=== PATIENT | male | born 1950 | race Caucasian/White ===

== ENCOUNTER 2017-01-10 11:32 | Day surgery (SDC) | payer MEDICARE ==
[~2017-01-10 11:32] MED LIST: Acetaminophen TAB* 325 MG PO PRN; Buffered Lidocaine 0.9% SYRIN* 5 ML/SYR SYRINGE INTRADERM ONE
[2017-01-10] MEDS ORDERED: Midazolam* 1 MG/ML 2 ML VIAL (2 MG) ONE (13:05)
[2017-01-10] MEDS ORDERED: Phenylephrine 2.5% OPTH.SOL* 2 ML BTL ONE (13:12)
[2017-01-10] MEDS ORDERED: Tropicamide 1% OPTH.SOL* BTL ONE (13:12)
[2017-01-10] MEDS ORDERED: Cyclopentolate 1% OPTH.SOL* 2 ML BTL ONE (13:12)
[2017-01-10] MEDS ORDERED: Neomycin/Polymy/Dex OPHTH.OIN* 3.5 GM ONE (13:12)
[2017-01-10] MEDS ORDERED: Tetracaine 0.5% OPTH.SOL 4 ML* 1 DROP BTL ONE (13:12)
[2017-01-10] MEDS ORDERED: Buffered Lidocaine 0.9% SYRIN* 5 ML/SYR SYRINGE ONE (13:12)
[2017-01-10] MEDS ORDERED: Ketorolac 0.5% OPHTH (NF) 0.5 % 5 ML BTL ONE (13:12)
[2017-01-10] MEDS ORDERED: Lidocaine 1% MPF* 2 ML VIAL ONE (13:12)
[2017-01-10 13:34] VITALS: BP 145/74
--- NOTE | 2017-01-10 15:25 | OP ---
DATE OF OPERATION/DATE OF DICTATION: 01/10/2017 - [facility] DATE OF : 1950. SURGEON: Dr. Jagdish Altamirano. MANAGER ECONOMIC: None. ANESTHESIOLOGIST: Manuel Lucero MD ANESTHESIA: Topical with intravenous sedation. PRE-OP DIAGNOSIS: Cataract, left eye. POST-OP DIAGNOSIS: Cataract, left eye. OPERATIVE PROCEDURE: Phacoemulsification and cataract extraction with posterior chamber intraocular lens implant, left eye. COMPLICATIONS: None. BLOOD LOSS: None. DESCRIPTION OF PROCEDURE: The patient was brought to the operating room and received a small amount of intravenous sedation. A drop of Tetracaine was placed in his left eye. He was prepped and draped in the usual sterile fashion for ophthalmic surgery and attention was directed to the left eye where a speculum was placed. A paracentesis was created at the 5 o'clock position and 0.1 cc of 1 percent preservative-free Lidocaine was injected into the anterior chamber followed by DisCoVisc. The eye was digitally stabilized while a 2.75 mm keratome was used to create a triplanar clear corneal incision at the 3 o'clock position. A continuous curvilinear capsulorrhexis was created with a cystotome and Utrata forceps. BSS on a cannula was used to hydrodissect the lens from the capsule. Phacoemulsification was performed in a siizfj-[id number]-[id number] technique to create four fragments which were removed. Residual cortical material was removed with irrigation and aspiration. DisCoVisc was used to inflate the capsular bag and an AUOOTO 19.0 diopter lens was folded and inserted into the capsular bag. DisCoVisc was removed using irrigation and aspiration. BSS on a cannula was used to hydrate the corneal stroma and seal the wound. At the end of the case the pupil was round and the lens was centered. The eye was of normal pressure and the wound was water tight. The speculum was removed and topical Maxitrol ointment was placed on the surface of the eye. The eye was closed, patched and shielded and the patient was sent to the recovery room in stable condition with post operative instructions and follow-up appointment given. [id number]/CPS #: [id number] [facility]
== END 2017-01-10 13:40 | disposition home or self-care (01) ==
LOC: OREAST 11:32
PROVIDERS: ATTEND Ophthalmology
DX: H25.012 Cortical age-related cataract, left eye (principal); I10 Essential (primary) hypertension; J44.9 Chronic obstructive pulmonary disease, unspecified; Z85.46 Personal history of malignant neoplasm of prostate; Z87.891 Personal history of nicotine dependence; Z79.82 Long term (current) use of aspirin
CPT/HCPCS: A9270-GY; J2250

== ENCOUNTER 2017-01-24 07:57 | Day surgery (SDC) | payer MEDICARE ==
[2017-01-24] MEDS ORDERED: fentaNYL* 50 MCG/ML 2 ML VIAL (100 MCG VIAL) ONE (08:12)
[2017-01-24] MEDS ORDERED: Midazolam* 1 MG/ML 5 ML VIAL (5 MG) ONE (08:12)
[2017-01-24 10:33] VITALS: BP 146/73
--- NOTE | 2017-01-24 12:40 | OP ---
DATE OF OPERATION: 01/24/2017 [facility] DATE OF : 1950. SURGEON: Dr. Jagdish Altamirano. SOCCER PLAYER: None. ANESTHESIA: Topical with intravenous sedation. PRE-OP DIAGNOSIS: Cataract, right eye. POST-OP DIAGNOSIS: Cataract, right eye. OPERATIVE PROCEDURE: Phacoemulsification and cataract extraction with posterior chamber intraocular lens implant, right eye. COMPLICATIONS: None. BLOOD LOSS: None. DESCRIPTION OF PROCEDURE: The patient was brought to the operating room and received a small amount of intravenous sedation. A drop of Tetracaine was placed in his right eye. He was prepped and draped in the usual sterile fashion for ophthalmic surgery and attention was directed to the right eye where a speculum was placed. A paracentesis was created at the 11 o'clock position and 0.1 cc of 1 percent preservative-free Lidocaine was injected into the anterior chamber followed by DisCoVisc. The eye was digitally stabilized while a 2.75 mm keratome was used to create a triplanar clear corneal incision at the 9 o'clock position. A continuous curvilinear capsulorrhexis was created with a cystotome and Utrata forceps. BSS on a cannula was used to hydrodissect the lens from the capsule. Phacoemulsification was performed in a divide-and- conquer technique to create four fragments which were removed. Residual cortical material was removed with irrigation and aspiration. DisCoVisc was used to inflate the capsular bag and an AUOOTO 20.0 diopter lens was folded and inserted into the capsular bag. DisCoVisc was removed using irrigation and aspiration. BSS on a cannula was used to hydrate the corneal stroma and seal the wound. At the end of the case the pupil was round and the lens was centered. The eye was of normal pressure and the wound was water tight. The speculum was removed and topical Maxitrol ointment was placed on the surface of the eye. The eye was closed, patched and shielded and the patient was sent to the recovery room in stable condition with post operative instructions and follow-up appointment given. [id number]/CPS #: [id number] DAVID
[2017-01-24] MEDS ORDERED: Ketorolac 0.5% OPHTH (NF) 0.5 % 5 ML BTL ONE (15:12)
[2017-01-24] MEDS ORDERED: Tropicamide 1% OPTH.SOL* BTL ONE (15:12)
[2017-01-24] MEDS ORDERED: Cyclopentolate 1% OPTH.SOL* 2 ML BTL ONE (15:12)
[2017-01-24] MEDS ORDERED: Tetracaine 0.5% OPTH.SOL 4 ML* 1 DROP BTL ONE (15:12)
[2017-01-24] MEDS ORDERED: Neomycin/Polymy/Dex OPHTH.OIN* 3.5 GM ONE (15:12)
[2017-01-24] MEDS ORDERED: Lidocaine 1% MPF* 2 ML VIAL ONE (15:12)
[2017-01-24] MEDS ORDERED: Phenylephrine 2.5% OPTH.SOL* 2 ML BTL ONE (15:12)
== END 2017-01-24 10:24 | disposition home or self-care (01) ==
LOC: OREAST 07:57
PROVIDERS: ATTEND Ophthalmology
DX: H25.11 Age-related nuclear cataract, right eye (principal); J44.9 Chronic obstructive pulmonary disease, unspecified; Z87.891 Personal history of nicotine dependence; I10 Essential (primary) hypertension; Z79.899 Other long term (current) drug therapy
CPT/HCPCS: A9270-GY; J2250; J3010

== ENCOUNTER 2018-08-21 10:20 | Inpatient (IN) | payer MEDICARE ==
--- NOTE | 2018-08-21 10:38 | ED ---
Substance Abuse/Use - HPI Summary HPI Summary: Patient is a 68 y/o M presenting to ED via EMS after an intentional overdose attempt. Patient reports that he deals with chronic pinched nerve hip pain. This morning, the patient had "had enough" and took theophylline, 100 mg x6 and losartan, 50 mg x5, at 0300. The patient reports that he later regretted this attempt and felt that he should have not attempted to overdose. Patient is reported to have called his family who decided to call EMS. EMS note that the patient had complaints of light-headedness and dizziness onsetting when they arrived in ED. PMHx of HTN, varicose veins, prostate CA. PSHx for hemorrhoids removal, right inguinal hernia repair, prostate CA surgery, bilateral catatracts surgery. FMHx of cardiac disease. Patient reports weekly alcohol usage, is a former smoker of over 25 years, denies substance usage. On triage, pain is rated 8/10, nothing is noted to aggravate/alleviate Sx. Home medications and allergies. - History Of Current Complaint Chief Complaint: EDOverdose Stated Complaint: OVERDOSE PER EMS Time Seen by Provider: 08/21/18 10:26 Hx Obtained From: Patient, EMS Onset/Duration of Drug/ETOH Abuse: Hours Ingestion History: Type/Name Of Drug - theophylline, 100 mg x6 and losartan, 50 mg x5 Overdose Characteristics: Oral Timing Of Abuse: Intermittent Severity Currently: Severe - pain 8/10 Character: Depressed Aggravating Factor(s): Other - chronic pain issues Alleviating Factor(s): Nothing Associated Signs And Symptoms: Other: - dizziness/light-headed - Allergies/Home Medications Allergies/Adverse Reactions: Allergies Allergy/AdvReac Type Severity Reaction Status Date / Time No Known Allergies Allergy Verified 06/08/18 08:40 Home Medications: Home Medications Fluconazole 150 MG TAB* [Diflucan 150 MG TAB*] 150 mg PO WEEKLY 08/21/18 [ History Confirmed 08/21/18] Losartan TAB* [Cozaar TAB*] 50 mg PO DAILY 08/21/18 [History Confirmed 08/21/18] Saline NASAL SPRAY 0.65%* [Sodium Chloride 0.65% Nasal [place]*] 1 - 2 spray BOTH NARES BID 08/21/18 [History Confirmed 08/21/18] Theophylline Anhydrous [Riky-24] 100 mg PO DAILY 08/21/18 [History Confirmed ] traMADol TAB* [Ultram*] 50 - 100 mg PO Q8H PRN 08/21/18 [History Confirmed 08/21] PMH/Surg Hx/FS Hx/Imm Hx Endocrine/Hematology History: Denies: Hx Bone Marrow Disease, Hx Diabetes, Hx Sickle Cell Disease, Hx Anemia Cardiovascular History: Reports: Hx Hypertension, Other Cardiovascular Problems/ Disorders - HX OF VARICOSE VEINS BILATERALLY, SURG X 3 Denies: Hx Pacemaker/ICD Respiratory History: Reports: Other Respiratory Problems/Disorders - WAS A HEAVY SMOKER FOR 37 YRS GI History: Reports: Other GI Disorders - HX HEMORRHOIDS, RIGHT INGUINAL HERNIA REPAIR History: Reports: Other Problems/Disorders - PROSTATE CA 2000 Denies: Hx Dialysis, Hx Renal Disease Musculoskeletal History: Reports: Other Musculoskeletal History - CHRONIC LEFT SHOULDER PAIN, GETS CORTISONE INJECTIONS, PRN Denies: Hx Arthritis Sensory History: Reports: Hx Cataracts - BILATERAL, Hx Contacts or Glasses - GLASSES Denies: Hx Hearing Aid Opthamlomology History: Reports: Hx Cataracts - BILATERAL, Hx Contacts or Glasses - GLASSES Psychiatric History: Denies: Hx Panic Disorder - Cancer History Cancer Type, Location and Year: Prostate cancer - surgery only 2000 Hx Chemotherapy: No - Surgical History Surgery Procedure, Year, and Place: HEMORRHOIDS - [facility];. RIGHT INGUINAL HERNIA - [facility];. BILATERAL VERICOSE VEINS - X3 - [facility];. PROSTATE CA - 2000 - [facility];. BILAT CATARACTS 2016; Hx Anesthesia Reactions: No - Family History Known Family History: Positive: Cardiac Disease - Social History Alcohol Use: Weekly Alcohol Amount: 1 BEER/WEEK Substance Use Type: Reports: None Smoking Status (MU): Former Smoker Type: Cigarettes Amount Used/How Often: 2 1/2 PPD OFF AN ON FOR 37 YRS Length of Time of Smoking/Using Tobacco: 37 YRS Have You Smoked in the Last Year: No Review of Systems Negative: Fever - ON VITALS, TEMP IS 98.6 F Neurological: Other - POSITIVE - DIZZINESS/LIGHT-HEADED Psychological: Other - POSITIVE - INTENTIONAL OVERDOSE ATTEMPT All Other Systems Reviewed And Are Negative: Yes Physical Exam - Summary Physical Exam Summary: Appearance: Well-appearing, Well-nourished, lying in bed comfortably Skin: Warm, dry, no obvious rash Eyes: sclera anicteric, no conjunctival pallor ENT: mucous membranes moist, pharynx appears normal Neck: Supple, nontender Respiratory: Clear to auscultation, no signs of respiratory distress Cardiovascular: Mild tachycardia. Normal S1, S2. No murmurs. Normal distal pulses in tibial and radial bilaterally. Abdomen: Soft, nontender, normal active bowel sounds present Musculoskeletal: Normal, Strength/ROM Intact Neurological: A&Ox3, awake and alert, mentation is normal, speech is fluent and appropriate Psychiatric: affect is normal, does not appear anxious or depressed Triage Information Reviewed: Yes Vital Signs On Initial Exam: Initial Vitals Temp Pulse Resp BP Pulse Ox 98.6 F 112 26 126/93 94 08/21/18 10:36 08/21/18 10:36 08/21/18 10:36 08/21/18 10:36 08/21/18 10:36 Vital Signs Reviewed: Yes Diagnostics - Laboratory Result Diagrams: 08/21/18 10:47 08/21/18 10:47 Lab Statement: Any lab studies that have been ordered have been reviewed, and results considered in the medical decision making process. - EKG 1045 Cardiac Rate: NL - rate of 99 bpm EKG Rhythm: Sinus Rhythm Summary of EKG Findings: NSR at 99 BPM, P waves, QRS complex, and T waves are within normal limits, T waves and intervals are normal, no ischemic changes. This is a normal EKG. Re-Evaluation - Re-Evaluation First Eval Re-Evaluation Time: 10:37 Comment: Poison control was contacted, they advised for bloodwork and EKG to be done, patient should be given activated charcoal. Second Eval Re-Evaluation Time: 12:25 Comment: Patient is medically cleared for MHE. Third Eval Re-Evaluation Time: 13:35 Comment: Nurse Minnie reports that poison control had called back. As the patient took Riky XR, patient will need another Riky level 46 hours after initial level. Course/Dx - Course Course Of Treatment: Patient is a 68 y/o M presenting to ED via EMS after an intentional overdose attempt. Patient reports that he deals with chronic pinched nerve hip pain. This morning, the patient had "had enough" and took theophylline, 100 mg x6 and losartan, 50 mg x5, at 0300. The patient reports that he later regretted this attempt and felt that he should have not attempted to overdose. Patient is reported to have called his family who decided to call EMS. EMS note that the patient had complaints of light-headedness and dizziness onsetting when they arrived in ED. Patient is slighty tachycardic on physical exam. Poison control was contacted, they advised for bloodwork and EKG to be done, patient should be given activated charcoal. Labs showed MCV 98, MCH 34, plt count 115, absolute lymph 0.9, glucose 155, lactic acid 1.8. UA showed trace WBC and RBC, 1+ blood. Urine tox screen was negative, theophylline was 10.6. During ED course, patient received fluids, charcoal 50 gm PO ED ONCE ONE. NSR at 99 BPM, P waves, QRS complex, and T waves are within normal limits, T waves and intervals are normal, no ischemic changes. This is a normal EKG. Patient was medically cleared for [facility]HE. Patient's case was reviewed by Dr. Mcqueen , patient will be a voluntary admission to [facility] Psych. - Diagnoses Provider Diagnoses: Major depressive disorder, Intentional overdose of drug in tablet form - Physician Notifications Discussed Care Of Patient With: Jefferson Mcqueen Time Discussed With Above Provider: 14:53 Instructed by Provider To: Other - Patient's case was reviewed by Dr. Mcqueen, patient will be a voluntary admission to [facility] Psych. Discharge - Sign-Out/Discharge Documenting (check all that apply): Patient Departure - admit Patient Received Moderate/Deep Sedation with Procedure: No - Discharge Plan Condition: Stable Disposition: ADMITTED TO [facility] - Billing Disposition and Condition Condition: STABLE Disposition: Admitted to [facility] - Attestation Statements Document Initiated by Tiara: Yes Documenting Scribe: RABIA RAMÍREZ Provider For Whom Tiara is Documenting (Include Credential): CASPER CONNOLLY MD Scribe Attestation: RABIA Ramos, scribed for CASPER CONNOLLY MD on 08/21/18 at 2051. Scribe Documentation Reviewed: Yes Provider Attestation: The documentation as recorded by the RABIA maravilla accurately reflects the service I personally performed and the decisions made by me, CASPER CONNOLLY MD Status of Scribe Document: Viewed
[2018-08-21] MEDS ORDERED: Charcoal 50 GM/Sorbitol* 50 GM/240 ML BTL PO ONE (10:43)
--- OUTSIDE RECORDS SUMMARY | 2018-08-21 10:47 | XMS REPORT | Continuity of Care Document ---
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 ETOH Use Rarely consumes alcohol Tobacco Use Start: Unknown End: Unknown Patient is a former smoker Smoking Status Reviewed: 08/15/18 Patient is a former smoker Allergies, Adverse Reactions, Alerts Description No Known Drug Allergies Medications Active Medications SIG Qnty Indications Ordering Date Provider Losartan Potassium 1 by mouth every Unknown 50mg day Tablets Riky-24 1 by mouth every Unknown 100mg Caps ER day 24HR Ibuprofen 2 tabs by mouth Unknown 200mg Capsules every 6 hours as needed Metronidazole use daily on face Unknown 1% Gel Fluconazole 1 by mouth every Unknown 150mg Tablets day Saline Nasal [place] 1 spray in each Unknown 0.65% nostril every 2 Solution hours as needed for congestion Tramadol HCL Anneliese Cruz 50mg Tablets Immunizations Description No Information Available Vital Signs Date Vital Result Comment 08/15/2018 2:26pm Height 71 inches 5'11" Weight 214.00 lb BP Systolic Sitting 156 mmHg BP Diastolic Sitting 80 mmHg Pain Level 4 BMI (Body Mass Index) 29.8 kg/m2 08/08/2018 2:54pm Height 71 inches 5'11" Weight 212.00 lb BP Systolic Sitting 210 mmHg BP Diastolic Sitting 98 mmHg Pain Level 10 BMI (Body Mass Index) 29.6 kg/m2 Results Description No Information Available Procedures Date Code Description Status 12/27/2016 94649 Repair Immediate Wound 2.6-7.5CM Completed Scalp/Axillae/Trunk/Extremities 12/27/2016 62897 Excise Malig Lesion 2.1-3CM Trunk/Arm/Leg Completed Encounters Type Date Location Provider Dx Diagnosis Office Visit 01/03/2017 [facility] Sandeep Ramos MD L82.1 Other seborrheic 10:50a keratosis R60.0 Localized edema B35.3 Tinea pedis B35.1 Tinea unguium Office Visit 12/23/2016 9:40a [facility] Sandeep Ramos, C44.622 Squamous cell MD carcinoma skin/ right upper limb, inc shoulder Plan of Treatment Future Appointment(s):08/20/2018 9:30 am - Payal Marroquin MD at [facility]08/15/2018 - DANNY Medina-CM48.062 Spinal stenosis, lumbar region with neurogenic uynacwwtohblJ90.36 Other intervertebral disc degeneration, lumbar regionFollow up:follow up with Dr. Marroquin 09/07 9: 30a to discuss surgical options
--- OUTSIDE RECORDS SUMMARY | 2018-08-21 10:47 | XMS REPORT | Continuity of Care Document ---
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6 kg/m2 Results Description No Information Available Procedures Date Code Description Status 12/27/2016 89893 Repair Immediate Wound 2.6-7.5CM Completed Scalp/Axillae/Trunk/Extremities 12/27/2016 58346 Excise Malig Lesion 2.1-3CM Trunk/Arm/Leg Completed Encounters Type Date Location Provider Dx Diagnosis Office Visit 01/03/2017 [facility] Sandeep Ramos MD L82.1 Other seborrheic 10:50a keratosis R60.0 Localized edema B35.3 Tinea pedis B35.1 Tinea unguium Office Visit 12/23/2016 9:40a [facility] Sandeep Ramos, C44.622 Squamous cell MD carcinoma skin/ right upper limb, inc shoulder Plan of Treatment 08/08/2018 - DANNY Medina-CM48.062 Spinal stenosis, lumbar region with neurogenic mpiyomvkivjaG33.36 Other intervertebral disc degeneration, lumbar jemukoL45.16 Spondylolisthesis, lumbar regionNew Xrays:Spine Scoliosis Erect, Ordered: 08/08/18Spine Lumbosacral Bending Views Only 2 Or 3 Views, Ordered: 04/28New Orders:EMG w/Nerve Conduct Study, Lower, Ordered: 08/08/18Follow up: Follow up with Dr. Marroquin for surgical evaluation
--- OUTSIDE RECORDS SUMMARY | 2018-08-21 10:47 | XMS REPORT | Continuity of Care Document ---
:1950 External Reference #:[id number] Author Name Kinga Stoddard Care Team Providers Name Role Phone Miki Campo MD Primary Care Physician Unavailable Payers Date Identification Numbers Payment Provider Subscriber Effective: 2016 Policy Number: [id number] Medicare Blue Ppo Jerrod Hoffman Group Number: [id number] [address] [address] PayID: [id number] KENYETTA Cisneros [phone] Advance Directives Description No Information Available Problems [...] every Unknown 150mg Tablets day Saline Nasal [place] 1 spray in each Unknown 0.65% nostril [...] Available Procedures Date Code Description Status 12/27/2016 54520 Repair Immediate Wound 2.6-7.5CM Completed Scalp/Axillae/Trunk/Extremities 12/27/2016 56815 Excise Malig Lesion 2.1-3CM Trunk/Arm/Leg Completed Encounters Type Date Location Provider Dx Diagnosis Office Visit 08/15/2018 [facility] Padmini Gibbs, M48.062 Spinal stenosis, 2:30p [facility] lumbar region with neurogenic claudication M51.36 Other intervertebral disc degeneration, lumbar region Office Visit 01/03/2017 10:50a [facility] Sandeep Ramos, L82.1 Other seborrheic MD keratosis R60.0 Localized edema B35.3 Tinea pedis B35.1 Tinea unguium Office Visit 12/23/2016 9:40a [facility] Sandeep Ramos, C44.622 Squamous cell MD carcinoma skin/ right upper limb, inc shoulder Plan of Treatment Future Appointment(s):09/07/2018 1:00 pm - Payal Marroquin MD at [facility]08/15/2018 - DANNY Medina-CM48.062 Spinal stenosis, lumbar region with neurogenic npsxfrriyedwL70.36 Other intervertebral disc degeneration, lumbar regionFollow up:follow up with Dr. Marroquin 09/07 9: 30a to discuss surgical options
--- OUTSIDE RECORDS SUMMARY | 2018-08-21 10:47 | XMS REPORT | Continuity of Care Document ---
:1950 External Reference #:[id number] Author Name Kinga Stoddard Care Team Providers Name Role Phone Miki Campo MD Primary Care Physician Unavailable Payers Date Identification Numbers Payment Provider Subscriber Effective: 2016 Policy Number: [id number] Medicare Blue Ppo Jerrod Hoffman Group Number: [id number] [address] [address] PayID: [id number] KENYETTA Cisneros [id number] Advance Directives Description No Information Available Problems [...] every Unknown 150mg Tablets day Saline Nasal [place] 1 spray in each Unknown 0.65% nostril [...] Available Procedures Date Code Description Status 12/27/2016 14170 Repair Immediate Wound 2.6-7.5CM Completed Scalp/Axillae/Trunk/Extremities 12/27/2016 68669 Excise Malig Lesion 2.1-3CM Trunk/Arm/Leg Completed Encounters Type Date Location Provider Dx Diagnosis Office Visit 08/20/2018 [facility] M48.062 Spinal stenosis, 9:30a [facility] Marroquin MD lumbar region with neurogenic claudication M51.36 Other intervertebral disc degeneration, lumbar region M43.16 Spondylolisthesis, lumbar region Office Visit 01/03/2017 10:50a [facility] Sandeep Ramos, L82.1 Other seborrheic MD keratosis R60.0 Localized edema B35.3 Tinea pedis B35.1 Tinea unguium Office Visit 12/23/2016 9:40a [facility] Sandeep Ramos, C44.622 Squamous cell MD carcinoma skin/ right upper limb, inc shoulder Plan of Treatment 08/20/2018 - Vassilwang Marroquin, MDM48.062 Spinal stenosis, lumbar region with neurogenic claudicationReferral:Dontrell Perry MD, Interventional Pain MedicBlakeMaria Luz MD, Surgery,Ortho Adult ReconFollow up:RV prnM51.36 Other intervertebral disc degeneration, lumbar thallxR75.16 Spondylolisthesis, lumbar region
--- OUTSIDE RECORDS SUMMARY | 2018-08-21 10:47 | XMS REPORT | Continuity of Care Document ---
:1950 External Reference #:[id number] Author Name Kinga Stoddard Care Team Providers Name Role Phone Miki Campo MD Primary Care Physician Unavailable Payers Date Identification Numbers Payment Provider Subscriber Effective: 2016 Policy Number: [id number] Medicare Blue Ppo Jerrod Hoffman [employer] Number: [id number] [address] [address] PayID: [id number] KENYETTA Cisneros [id number] Advance Directives Description No Information Available Problems [...] every Unknown 150mg Tablets day Saline Nasal Gary 1 spray in each Unknown 0.65% nostril every 2 Solution hours as needed for congestion Tramadol HCL [place] Cruz 50mg Tablets Immunizations Description No Information Available Vital Signs Date Vital Result Comment 08/08/2018 2:54pm Height 71 inches 5'11" Weight 212.00 lb BP Systolic Sitting 210 mmHg BP Diastolic Sitting 98 mmHg Pain Level 10 BMI (Body Mass Index) 29.6 kg/m2 Results Description No Information Available Procedures Date Code Description Status 12/27/2016 68111 Repair Immediate Wound 2.6-7.5CM Completed Scalp/Axillae/Trunk/Extremities 12/27/2016 35993 Excise Malig Lesion 2.1-3CM Trunk/Arm/Leg Completed Encounters Type Date Location Provider Dx Diagnosis Office Visit 01/03/2017 [facility] Dermatology Sandeep Ramos MD L82.1 Other seborrheic 10:50a keratosis R60.0 Localized edema B35.3 Tinea pedis B35.1 Tinea unguium Office Visit 12/23/2016 9:40a [facility] Dermatology Sandeep Ramos, C44.622 Squamous cell MD carcinoma skin/ right upper limb, inc shoulder Plan of Treatment 08/08/2018 - DANNY Medina-CM48.062 Spinal stenosis, lumbar region with neurogenic lgtdkatqjkpmK04.36 Other intervertebral disc degeneration, lumbar rjmjvpR83.16 Spondylolisthesis, lumbar regionNew Xrays:Spine Scoliosis Erect, Ordered: 08/08/18Spine Lumbosacral Bending Views Only 2 Or 3 Views, Ordered: 04/28New Orders:EMG w/Nerve Conduct Study, Lower, Ordered: 08/08/18Follow up: Follow up with Dr. Marroquin for surgical evaluation
[2018-08-21 10:57] LABS: ABS Lymphocytes 0.9 10^3/ul (1.0-4.8); ABS Monocytes 0.5 10^3/ul (0-0.8); ABS Neutrophils 3.5 10^3/ul (1.5-7.7); Eosinophil % 0.2 %; Hematocrit 44 % (42-52); Hemoglobin 15.3 g/dL (14.0-18.0); Lymphocyte % 18.7 %; Mean Corpuscular HGB Conc 35 g/dL (31-36); Mean Corpuscular Hemoglobin 34 pg (27-31); Mean Corpuscular Volume 98 fL (80-94); Mean Platelet Volume 7.9 fL (7.4-10.4); Nucleated Red Blood Cells % 0.1; Platelet Count 115 10^3/uL (150-450); Red Blood Count 4.56 10^6 /uL (4.18-5.48); Red Cell Distribution Width 13 % (10.5-15); White Blood Count 4.9 10^3/uL (3.5-10.8)
[2018-08-21] MEDS: NS 0.9% 1000 ML** 2,000 ML IV ONE (11:00)
[2018-08-21 11:38] LABS: ALT 21 U/L (7-52); AST 24 U/L (13-39); Albumin 4.4 g/dL (3.2-5.2); Albumin/Globulin Ratio 1.6 (1-3); Alkaline Phosphatase 46 U/L (34-104); Anion Gap 8 mmol/L (2-11); BUN/Creatinine Ratio 16.9 (8-20); Blood Urea Nitrogen 14 mg/dL (6-24); CO2 Carbon Dioxide 26 mmol/L (22-32); Calcium 9.6 mg/dL (8.6-10.3); Chloride 105 mmol/L (101-111); EGFR African American 110.8 (>60); EGFR Non-African American 91.6 (>60); Globulin 2.7 g/dL (2-4); Glucose 155 mg/dL (70-100); Potassium 3.9 mmol/L (3.5-5.0); Sodium 139 mmol/L (135-145); Total Protein 7.1 g/dL (6.4-8.9)
[2018-08-21 11:40] LABS: Urine Appearance Clear; Urine Bacteria Absent (Absent); Urine Bilirubin Negative (Negative); Urine Blood 1+ (Negative); Urine Color Straw; Urine Glucose Negative (Negative); Urine Ketones Negative (Negative); Urine Nitrite Negative (Negative); Urine Protein Negative (Negative); Urine Red Blood Cell Trace(0-2/hpf) (Absent); Urine Specific Gravity 1.008 (1.010-1.030); Urine Urobilinogen Negative (Negative); Urine White Blood Cell Trace(0-5/hpf) (Absent)
[2018-08-21 11:53] LABS: Acetaminophen < 15 mcg/mL; Alcohol < 10 mg/dL (<10); Salicylate < 2.50 mg/dL (<30); Theophylline 10.6 mcg/mL (10-20.0)
[2018-08-21 11:57] LABS: Urine Benzodiazepine Screen None Detected (None Detect); Urine Opiates Screen None Detected (None Detect)
[2018-08-21] MEDS ORDERED: Al Hydrox/Mg Hydrox/Simet LIQ* 30 ML UDC PO PRN (15:30)
[2018-08-21] MEDS ORDERED: Acetaminophen TAB* 325 MG PO PRN (15:30)
[2018-08-21] MEDS ORDERED: hydrOXYzine HCL TAB* 50 MG PO PRN (15:32)
[2018-08-21] MEDS: traMADol TAB* 50 MG PO PRN (18:20)
[2018-08-22] MEDS: traMADol TAB* 50 MG PO PRN ×3 (02:19→19:01)
[2018-08-22] MEDS: Ibuprofen TAB* 400 MG PO PRN ×3 (09:21→22:54)
[2018-08-22] MEDS: Losartan TAB* 25 MG PO SCH (09:21)
--- NOTE | 2018-08-22 17:39 | HP ---
CONTINUATION ADDENDUM NOW INCLUDED ON THIS REPORT HISTORY AND PHYSICAL: DATE OF ADMISSION: 08/21/18 PROVIDER: Candy Salcedo NP, in Psychiatry. SUPERVISING PHYSICIAN: Jefferson Mcqueen MD * (DICTATED BY CANDY SALCEDO NP) JUSTIFICATION FOR ADMISSION: The patient is in need of 24-hour supervision and care secondary to suicidal ideation and status post overdose. CHIEF COMPLAINT: "I'm getting tired of this, enough is enough." HISTORY OF PRESENT ILLNESS: Jerrod is a 68-year-old white male with a history of somatic pain, who arrives, brought by ambulance and is here on a voluntary status after he took six 100 mg theophylline, five 50 mg losartan. He states that he later regretted the attempt and he called the people who work in his building, [employer], who then decided to call emergency medical services. The overdose took place at 3 in the morning. It occurred in the wake of his body becoming more painful since the day before at 1730 after going to the chiropractor. He states "I go minute by minute rather than day by day." He feels like the doctors have taken away his hope of ever feeling less pain. He feels like he made the wrong choice in overdosing, but also is puzzled by the lack of help he is getting or perceives himself to be getting. He is not particularly depressed. His sleep is disrupted because of his pain. 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 He feels guilty about his overdose. His energy is lowered because of his pain, but when somewhat properly medicated, his movements are fluid and he appears quite active. He is able to concentrate. His appetite is good. He is no longer having suicidal ideation. PAST PSYCHIATRIC HISTORY: Jerrod's history is significant for the absence of any psychiatric issues. He has never been hospitalized before. He has never received treatment before. He denies that he has ever had suicidal ideation or homicidal ideation. He states he does not have weapons and he says he has "no blades." He does unhappily state "I can't see a bright side." He is not interested in taking any antidepressant and he acquits his hesitancy about doing physical therapy and that he does not know if it will work or not, "what it will do to me?" When offered to discuss the side effects more specifically, he stated "we ARE discussing the side effects." TRAUMA HISTORY: Denied. SUBSTANCE ABUSE HISTORY: He smoked 2-1/2 packs of cigarettes a day since he was 10 and stopped this 25 years ago with the help of nicotine patches. He also used to drink excessive amounts of alcohol, but he is circumspect about this. PAST MEDICAL HISTORY: This is extensive. He has many problems with his feet, legs, hips and his back. He currently has what he terms is a pinched nerve on his right hip. He has in addition some venous leg problems. He has bone spurs in his heels for which he got cortisone shots. Ibuprofen helps his pain as does tramadol. He states his legs start to "go out." This is his terminology for when the pain in his right leg gets severe enough to make him incapacitated. He stated that he is thinking about having surgery done, but he worries about who will do it and he states he is not impressed with some people and he has a lot of person complaints to go along with his list of physical symptoms. FAMILY HISTORY: He denies that his family has symptoms like his. He does say his son gets "nervous and upset" like he does. SOCIAL HISTORY: He was born in [place]. He states he is not well-educated. He states he has trouble filling out paperwork. He was , but is now . He has 2 children, Jerrod and Christina. Christina lives in [place] and Jerrod lives near [place]. 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 When he lost his job at [employer] after working at several places for many years including the [employer] and [employer], he began receiving social security benefits and determined that those were sufficient. He has no legal problems. REVIEW OF SYSTEMS: The patient reports feeling fatigued. He has some audible shortness of breath, but this is normal as he has chronic bronchitis. He states he is cold much of the time. He denies chest pain or abdominal pain. He denies neurological symptoms, although he does indicate he has nerve pain and what appears to be arthritic pain in his right hip and he describes footdrop. He denies fevers or changes in weight. CONTINUATION ADDENDUM: PHYSICAL EXAMINATION GENERAL APPEARANCE: Well appearing, well nourished, sitting on the couch comfortably. VITAL SIGNS: On 08/22/18 at 0753, temperature was 97.5, pulse 66, respirations 16, O2 sat on room air 96%, blood pressure 136/71. HEENT: Eyes: Sclerae anicteric. No conjunctival pallor. ENT: Mucous membranes moist. Pharynx appears normal. NECK: Supple, nontender. RESPIRATORY: Clear to auscultation. No signs of respiratory distress. CARDIOVASCULAR: Mild tachycardia in the emergency department. Normal S1, S2. No murmurs. Normal distal pulses in tibial and radial bilaterally. ABDOMEN: Soft, nontender. Normoactive bowel sounds present. MUSCULOSKELETAL: Normal strength. ROM intact. NEUROLOGICAL: Alert and oriented x4. Awake and alert. Mentation is normal. Speech is fluent and appropriate. SKIN: Warm, dry, no obvious rash. MENTAL STATUS EXAM: Jerrod is a 68-year-old man, who is 6 feet tall and weighs 205 pounds. He walks slowly and is apparently in pain as he walks and often it appears when he sits. He complains of those pains as well. He is calm and cooperative. His speech is of a normal rate, tone, and volume. He has copious speech and has circumstantial speech. He is dysphoric. He has a full range of affect, however. His thought processes are normal. His thought content appears to be free of delusions. He denies being homicidal and he denies being suicidal at this time as he is not in severe pain. He is denying hallucinations. His insight is good. His judgment is fair. He is alert and oriented x4. LABORATORY DATA: Most data are within normal limits, exceptions include MCV high at 98; MCH high at 34; platelet count, low, 115; absolute lymphocytes 0.9, low. Glucose was high at 155. Urine specific gravity was low. Urine blood was present. Illicit substances were not present in urine, only exception to normal toxicology screen is that on 08/21/18 at 1047, theophylline was within normal limits at 10.6 and low at 6.8 on 08/21/18 at 1435. DIAGNOSIS: Adjustment disorder. IMPRESSION: Jerrod is a 68-year-old man, who appears somewhat older than his stated age, who comes to the hospital by ambulance following his admission to the staff at [facility] where he lives that he overdosed on his own prescribed medications. He is suicidal in the context of being in severe pain and seeing no hope in that pain ever being eliminated. PLAN: Jerrod is admitted to the adult behavioral health unit and placed on 15- minute checks for his own safety. He is encouraged to participate in supportive milieu, individual, and group therapies. Estimated length of stay is 3 to 5 days. We will titrate medications to efficacy if he chooses to take them. At this point, he does not and we will monitor for mood and thought content. Discharge planning will include family involvement and outpatient provider coordination. CANDY SALCEDO NP [id number]/CPS #: [id number]/CPS #: [id number] DAVID
--- NOTE | 2018-08-22 22:22 | HP ---
HISTORY AND PHYSICAL: ADDENDUM: PHYSICAL EXAMINATION GENERAL APPEARANCE: Well appearing, well nourished, sitting on the couch comfortably. VITAL SIGNS: On 08/22/18 at 0753, temperature was 97.5, pulse 66, respirations 16, O2 sat on room air 96%, blood pressure 136/71. HEENT: Eyes: Sclerae anicteric. No conjunctival pallor. ENT: Mucous membranes moist. Pharynx appears normal. NECK: Supple, nontender. RESPIRATORY: Clear to auscultation. No signs of respiratory distress. CARDIOVASCULAR: Mild tachycardia in the emergency department. Normal S1, S2. No murmurs. Normal distal pulses in tibial and radial bilaterally. ABDOMEN: Soft, nontender. Normoactive bowel sounds present. MUSCULOSKELETAL: Normal strength. ROM intact. NEUROLOGICAL: Alert and oriented x4. Awake and alert. Mentation is normal. Speech is fluent and appropriate. SKIN: Warm, dry, no obvious rash. MENTAL STATUS EXAM: Jerrod is a 68-year-old man, who is 6 feet tall and weighs 205 pounds. He walks slowly and is apparently in pain as he walks and often it appears when he sits. He complains of those pains as well. He is calm and cooperative. His speech is of a normal rate, tone, and volume. He has copious speech and has circumstantial speech. He is dysphoric. He has a full range of affect, however. His thought processes are normal. His thought content appears to be free of delusions. He denies being homicidal and he denies being suicidal at this time as he is not in severe pain. He is denying hallucinations. His insight is good. His judgment is fair. He is alert and oriented x4. LABORATORY DATA: Most data are within normal limits, exceptions include MCV high at 98; MCH high at 34; platelet count, low, 115; absolute lymphocytes 0.9, low. Glucose was high at 155. Urine specific gravity was low. Urine blood was present. Illicit substances were not present in urine, only exception to normal toxicology screen is that on 08/21/18 at 1047, theophylline was within normal limits at 10.6 and low at 6.8 on 08/21/18 at 1435. DIAGNOSIS: Adjustment disorder. IMPRESSION: Jerrod is a 68-year-old man, who appears somewhat older than his stated age, who comes to the hospital by ambulance following his admission to the staff at [facility] where he lives that he overdosed on his own prescribed medications. He is suicidal in the context of being in severe pain and seeing no hope in that pain ever being eliminated. PLAN: Jerrod is admitted to the adult behavioral health unit and placed on 15- minute checks for his own safety. He is encouraged to participate in supportive milieu, individual, and group therapies. Estimated length of stay is 3 to 5 days. We will titrate medications to efficacy if he chooses to take them. At this point, he does not and we will monitor for mood and thought content. Discharge planning will include family involvement and outpatient provider coordination. BRODY DE LOS SANTOS, ANTONETTE [id number]/CPS #: [id number] DAVID
[2018-08-23] MEDS: traMADol TAB* 50 MG PO PRN ×2 (02:41→10:57)
[2018-08-23] MEDS: Ibuprofen TAB* 400 MG PO PRN ×2 (06:10→15:08)
[2018-08-23 08:24] LABS: HDL Cholesterol 50.5 mg/dL
[2018-08-23 09:39] VITALS: BP 149/71
[2018-08-23] MEDS: Losartan TAB* 25 MG PO SCH (09:44)
--- NOTE | 2018-08-23 11:49 | PN ---
BSU: Group Therapy Note - Service Type Service Type: 90468 Group Psychotherapy - Cognitive Behavioral Group Therapy ( CBT):Patient was attentive and participatory in CBT programming this morning, and remained in good behavioral control. Patient expressed positive insights regarding relevant treatment interventions and goals.
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
== END 2018-08-23 16:00 | disposition home or self-care (01) | DRG 882 ==
LOC: ED 10:20 → BSU 15:30
PROVIDERS: ADMIT Psychiatry & Neurology Psychiatry; ATTEND Psychiatry & Neurology Psychiatry
DX: F43.20 Adjustment disorder, unspecified (principal); R45.851 Suicidal ideations; G58.9 Mononeuropathy, unspecified; M77.30 Calcaneal spur, unspecified foot; J42 Unspecified chronic bronchitis; T44.5X Poisoning by, adverse effect of and underdosing of predominantly beta-adrenoreceptor agonists; T46.5X2A Poisoning by other antihypertensive drugs, intentional self-harm, initial encounter; Y92.9 Unspecified place or not applicable
CPT/HCPCS: 36415; 80053; 80061; 80198; 80307; 80320; 80329; 81003; 81015; 83036; 83605; 85025; 87086; 90853; 93005; 99222; 99238; 99284; A9270-GY; G0480

== ENCOUNTER 2023-10-18 08:57 | Observation (INO) ==
[~2023-10-18 08:57] MED LIST changes: -Acetaminophen TAB* 325 MG PO PRN; -Buffered Lidocaine 0.9% SYRIN* 5 ML/SYR SYRINGE INTRADERM ONE; +TARLATAMAB-DLLE 1 MG in NS 0.9% 250 ml 248.9 ML IVPB SCH
[2023-10-18 09:46] LABS: Albumin 4.2 g/dL (3.2-5.2); Albumin/Globulin Ratio 1.6 (1-3); Calcium 9.4 mg/dL (8.6-10.3); Creatinine, Serum 0.87 mg/dL (0.67-1.17); Globulin 2.7 g/dL (2-4); Potassium 4.2 mmol/L (3.5-5.0); Total Bilirubin 0.6 mg/dL (0.2-1.0); Total Protein 6.9 g/dL (6.4-8.9)
[2023-10-18 09:49] LABS: ABS Neutrophils 2.4 10^3/uL (1.5-7.6); Hemoglobin 12.6 g/dL (13.2-16.3); Mean Corpuscular Hemoglobin 34.3 pg (27-33); Mean Corpuscular Volume 100.9 fL (80-97); Red Blood Count 3.67 10^6/uL (4.06-5.63); Red Cell Distribution Width 14.8 % (12-17); White Blood Count 4.4 10^3/uL (3.6-10.2)
[2023-10-18 10:20] LABS: ABS Lymphocytes 1.1 10^3/uL (1.0-4.8); ABS Monocytes 0.7 10^3/uL (0.0-1.1); Lymphocyte % 26.1 %; Mean Platelet Volume 7.7 fL (7.5-11.2); Platelet Count 91 10^3/uL (150-450)
[2023-10-18] MEDS ORDERED: Dexamethasone IV 4 MG/ML VIAL 1 ml VIAL ONE (10:33)
[2023-10-18] MEDS ORDERED: Ondansetron 4 mg VIAL 2 MG/ML 2 ml VIAL IV PRN (10:34)
[2023-10-18] MEDS ORDERED: Tocilizumab 200 MG/10 ML 10 ml VIAL IVPB PRN (10:44)
[2023-10-18] MEDS ORDERED: Dexamethasone IV 4 MG/ML VIAL 1 ml VIAL IV SLOW PU PRN (10:46)
[2023-10-18] MEDS ORDERED: Albuterol HFA INHALER 8 gm MDI INH PRN (16:50)
[2023-10-18] MEDS ORDERED: TOCILIZUMAB IVPB PRN (18:16)
[2023-10-18] MEDS ORDERED: NS 0.9% IVPB PRN (18:16)
[2023-10-18] MEDS: Magnesium Hydroxide LIQ 30 ML UDC PO SCH (18:26)
[2023-10-18] MEDS: NS 0.9% 1000 ml BAG 1,000 ML IV SCH (18:28)
[2023-10-18] MEDS: Fluticasone NASAL SPRAY 50MCG 16 gm SPRAY BTL INTRANASAL PRN (19:54)
[2023-10-19 06:22] LABS: ABS Lymphocytes 0.7 10^3/uL (1.0-4.8); ABS Monocytes 0.8 10^3/uL (0.0-1.1); ABS Neutrophils 7.9 10^3/uL (1.5-7.6); Hematocrit 37.8 % (38-53); Hemoglobin 13.2 g/dL (13.2-16.3); Lymphocyte % 7.6 %; Mean Corpuscular Hemoglobin 35.1 pg (27-33); Mean Corpuscular Hgb Conc 34.8 g/dL (31-36); Mean Corpuscular Volume 100.8 fL (80-97); Mean Platelet Volume 7.7 fL (7.5-11.2); Platelet Count 91 10^3/uL (150-450); Red Blood Count 3.75 10^6/uL (4.06-5.63); Red Cell Distribution Width 14.9 % (12-17); White Blood Count 9.4 10^3/uL (3.6-10.2)
[2023-10-19 07:05] LABS: Albumin/Globulin Ratio 1.7 (1-3); Creatinine, Serum 0.77 mg/dL (0.67-1.17); Globulin 2.3 g/dL (2-4); Potassium 4.2 mmol/L (3.5-5.0); Total Bilirubin 0.6 mg/dL (0.2-1.0); Total Protein 6.3 g/dL (6.4-8.9); eGFR CKD-EPI 93.4 (>60)
[2023-10-19] MEDS: THEOPHYLLINE 100 MG PO SCH (08:16)
[2023-10-19] MEDS: DULoxetine DR 20 mg CAP PO SCH (08:17)
[2023-10-19 10:55] VITALS: BP 158/79
== END 2023-10-19 13:45 | disposition home or self-care (01) ==
LOC: CHOA 08:57 → MED 08:57
PROVIDERS: ADMIT Physician Assistant; ATTEND Internal Medicine Medical Oncology

== ENCOUNTER 2023-11-22 09:54 | Observation (INO) ==
[~2023-11-22 09:54] MED LIST changes: +Albuterol HFA INHALER 8 gm MDI INH PRN; +Dexamethasone IV 4 MG/ML VIAL 1 ml VIAL IV SLOW PU PRN; +Fluticasone NASAL SPRAY 50MCG 16 gm SPRAY BTL INTRANASAL PRN; +Tocilizumab 200 MG/10 ML 10 ml VIAL IVPB PRN
[2023-11-22 10:31] LABS: ABS Eosinophils 0.1 10^3/uL (0.0-0.5); ABS Lymphocytes 0.6 10^3/uL (1.0-4.8); ABS Monocytes 0.4 10^3/uL (0.0-1.1); ABS Neutrophils 2.2 10^3/uL (1.5-7.6); Eosinophil % 1.6 %; Hematocrit 35.5 % (38-53); Hemoglobin 12.4 g/dL (13.2-16.3); Lymphocyte % 16.8 %; Mean Corpuscular Hemoglobin 35.6 pg (27-33); Mean Corpuscular Hgb Conc 34.9 g/dL (31-36); Mean Corpuscular Volume 101.9 fL (80-97); Mean Platelet Volume 7.3 fL (7.5-11.2); Platelet Count 102 10^3/uL (150-450); Red Blood Count 3.48 10^6/uL (4.06-5.63); White Blood Count 3.3 10^3/uL (3.6-10.2)
[2023-11-22 10:50] LABS: Albumin 4.1 g/dL (3.2-5.2); Albumin/Globulin Ratio 1.6 (1-3); Calcium 9.5 mg/dL (8.6-10.3); Creatinine, Serum 0.81 mg/dL (0.67-1.17); Globulin 2.5 g/dL (2-4); Potassium 4.6 mmol/L (3.5-5.0); Total Bilirubin 0.5 mg/dL (0.2-1.0); Total Protein 6.6 g/dL (6.4-8.9); eGFR CKD-EPI 91.9 (>60)
[2023-11-22] MEDS ORDERED: Dexamethasone IV 4 MG/ML VIAL 1 ml VIAL ONE (11:21)
[2023-11-22] MEDS: Enoxaparin 40 MG/0.4 ML SYR SUBCUT SCH (17:32)
[2023-11-22] MEDS: NS 0.9% 1000 ml BAG 1,000 ML IV SCH ×2 (18:17→20:49)
[2023-11-23] MEDS: NS 0.9% 1000 ml BAG 1,000 ML IV SCH (00:09)
[2023-11-23 06:57] LABS: Hematocrit 34.7 % (38-53); Hemoglobin 12.2 g/dL (13.2-16.3); Mean Corpuscular Hemoglobin 35.7 pg (27-33); Mean Corpuscular Hgb Conc 35.2 g/dL (31-36); Mean Corpuscular Volume 101.5 fL (80-97); Red Blood Count 3.41 10^6/uL (4.06-5.63); Red Cell Distribution Width 13.7 % (12-17); White Blood Count 4.4 10^3/uL (3.6-10.2)
[2023-11-23 07:11] LABS: Albumin 3.7 g/dL (3.2-5.2); Albumin/Globulin Ratio 1.9 (1-3); Calcium 9.1 mg/dL (8.6-10.3); Creatinine, Serum 0.71 mg/dL (0.67-1.17); Potassium 4.1 mmol/L (3.5-5.0); Total Bilirubin 0.6 mg/dL (0.2-1.0); Total Protein 5.7 g/dL (6.4-8.9); eGFR CKD-EPI 95.7 (>60)
[2023-11-23] MEDS: DULoxetine DR 20 mg CAP PO SCH (08:04)
[2023-11-23 08:07] LABS: ABS Lymphocytes 0.6 10^3/uL (1.0-4.8); ABS Monocytes 0.6 10^3/uL (0.0-1.1); ABS Neutrophils 3.3 10^3/uL (1.5-7.6); Eosinophil % 0.1 %; Lymphocyte % 13.2 %; Mean Platelet Volume 7.7 fL (7.5-11.2); Platelet Count 97 10^3/uL (150-450)
[2023-11-23] MEDS ORDERED: TOCILIZUMAB IVPB PRN (08:08)
[2023-11-23] MEDS ORDERED: SODIUM CHLORIDE IVPB PRN (08:08)
[2023-11-23] MEDS: THEOPHYLLINE 100 MG PO SCH (08:15)
[2023-11-23] MEDS ORDERED: Magnesium Hydroxide LIQ 30 ML UDC PO PRN (08:59)
[2023-11-23 09:34] VITALS: BP 117/69
== END 2023-11-23 15:09 | disposition home or self-care (01) ==
LOC: CHOA 09:54 → MEDTELE 09:54
PROVIDERS: ADMIT Internal Medicine Hematology & Oncology; ATTEND Internal Medicine Medical Oncology

== ENCOUNTER 2023-11-29 09:46 | Observation (INO) ==
[~2023-11-29 09:46] MED LIST changes: -Albuterol HFA INHALER 8 gm MDI INH PRN; -Dexamethasone IV 4 MG/ML VIAL 1 ml VIAL IV SLOW PU PRN; -Fluticasone NASAL SPRAY 50MCG 16 gm SPRAY BTL INTRANASAL PRN; +SODIUM CHLORIDE 0.9% IVPB SCH; -Tocilizumab 200 MG/10 ML 10 ml VIAL IVPB PRN; +[UNRECOGNIZED DRUG - OTHER] IVPB SCH
[2023-11-29] MEDS ORDERED: Dexamethasone IV 4 MG/ML VIAL 1 ml VIAL ONE (10:20)
[2023-11-29] MEDS ORDERED: Ondansetron 4 mg VIAL 2 MG/ML 2 ml VIAL IV PRN (10:21)
[2023-11-29] MEDS ORDERED: Tocilizumab 200 MG/10 ML 10 ml VIAL IVPB PRN (10:27)
[2023-11-29] MEDS ORDERED: Dexamethasone IV 4 MG/ML VIAL 1 ml VIAL IV SLOW PU PRN (10:28)
[2023-11-29] MEDS ORDERED: Fluticasone NASAL SPRAY 50MCG 16 gm SPRAY BTL INTRANASAL PRN (10:29)
[2023-11-29] MEDS ORDERED: Albuterol HFA INHALER 8 gm MDI INH PRN (10:29)
[2023-11-29] MEDS: Enoxaparin 40 MG/0.4 ML SYR SUBCUT SCH (15:53)
[2023-11-29] MEDS: NS 0.9% 1000 ml BAG 1,000 ML IV SCH (16:19)
[2023-11-29] MEDS: Magnesium Hydroxide LIQ 30 ML UDC PO SCH (17:28)
[2023-11-29] MEDS ORDERED: Magnesium Hydroxide LIQ 30 ML UDC PO ONE (21:00)
[2023-11-30 06:10] LABS: ABS Lymphocytes 0.5 10^3/uL (1.0-4.8); ABS Monocytes 0.6 10^3/uL (0.0-1.1); ABS Neutrophils 3.3 10^3/uL (1.5-7.6); Eosinophil % 0.2 %; Hematocrit 35.2 % (38-53); Hemoglobin 12.3 g/dL (13.2-16.3); Lymphocyte % 12.2 %; Mean Corpuscular Hemoglobin 35.4 pg (27-33); Mean Corpuscular Hgb Conc 34.9 g/dL (31-36); Mean Corpuscular Volume 101.4 fL (80-97); Mean Platelet Volume 7.8 fL (7.5-11.2); Nucleated Red Blood Cells % 0.1 %/100WBC (0.0-0.8); Platelet Count 103 10^3/uL (150-450); Red Blood Count 3.47 10^6/uL (4.06-5.63); White Blood Count 4.4 10^3/uL (3.6-10.2)
[2023-11-30 06:20] LABS: Albumin 3.7 g/dL (3.2-5.2); Albumin/Globulin Ratio 1.7 (1-3); Creatinine, Serum 0.78 mg/dL (0.67-1.17); Globulin 2.2 g/dL (2-4); Potassium 4.1 mmol/L (3.5-5.0); Total Bilirubin 0.6 mg/dL (0.2-1.0); Total Protein 5.9 g/dL (6.4-8.9)
[2023-11-30] MEDS: DULoxetine DR 20 mg CAP PO SCH (08:07)
[2023-11-30] MEDS ORDERED: THEOPHYLLINE 100 MG PO SCH (09:00)
[2023-11-30 10:37] VITALS: BP 144/77
== END 2023-11-30 15:09 | disposition home or self-care (01) ==
LOC: MEDTELE 09:46 → CHOA 09:46
PROVIDERS: ADMIT Internal Medicine Hematology & Oncology; ATTEND Internal Medicine Hematology & Oncology